=== PATIENT | female | born 1940 ===

== ENCOUNTER 2018-06-11 09:35 | Emergency (ER) | payer OTHER ==
[~2018-06-11] VITALS: Ht 152.4 cm; Wt 85.7 kg
[~2018-06-11 09:35] MED LIST: AMOXICILLIN875 MG; ANAPRIL; CARBIDOPA LEV; CRESTOR5 MG; DURICEF 500 MG CAPSULE PO; FELODIPINE ER2.5 MG; MIRAPEX1 MG; RAZADYNE4 MG; ROBITUSSIN100 MG/52; SINUS 12 HOUR120 MG; SYNTHROID88 MCG; Ultracet Tablet PO; [UNRECOGNIZED DRUG - OTHER]
== END 2018-06-11 12:21 | disposition home or self-care (01) ==
LOC: ER 09:35
DX: J06.9 Acute upper respiratory infection, unspecified (principal)